=== PATIENT | male | born 1995 ===

== ENCOUNTER 2017-07-13 21:12 | Emergency (ER) | payer OTHER ==
[2017-07-13 21:27] VITALS: BP 135/84
--- NOTE | 2017-07-13 21:45 | UC ---
Laceration HPI - HPI Summary HPI Summary: Patient states he was at a swimming pool lifting some bleachers about 2 hrs ago when they fell on his barefoot left toe. Denies pain. States he had a tetanus vaccine last summer. - History Of Current Complaint Chief Complaint: UCLowerExtremity Stated Complaint: TOE INJURY Time Seen by Provider: 07/13/17 21:27 Hx Obtained From: Patient Laceration Location: Toe Mechanism Of Injury: Blunt Trauma Onset/Duration: Sudden Onset, Lasting Hours Severity: Moderate Pain Intensity: 6 - Allergies/Home Medications Allergies/Adverse Reactions: Allergies Allergy/AdvReac Type Severity Reaction Status Date / Time No Known Allergies Allergy Verified 07/13/17 21:28 Home Medications: Home Medications NK [No Home Medications Reported] 07/13/17 [History Confirmed 07/13/17] PMH/Surg Hx/FS Hx/Imm Hx Previously Healthy: Yes - Surgical History Surgical History: None - Social History Alcohol Use: Weekly Substance Use Type: Marijuana Substance Use Comment - Amount & Last Used: last used 5 pm today Smoking Status (MU): Never Smoked Tobacco Review of Systems Constitutional: Negative Skin: Bruising All Other Systems Reviewed And Are Negative: Yes Physical Exam Triage Information Reviewed: Yes Appearance: Well-Appearing, No Pain Distress Vital Signs: Initial Vital Signs Temp 99.1 F 07/13/17 21:22 Pulse 105 07/13/17 21:22 Resp 16 07/13/17 21:22 BP 135/84 07/13/17 21:22 Pulse Ox 98 07/13/17 21:22 Vital Signs Reviewed: Yes Eyes: Positive: Conjunctiva Clear Respiratory: Positive: Chest non-tender, Normal breath sounds Cardiovascular: Positive: Pulses Normal, Brisk Capillary Refill Musculoskeletal: Positive: Strength Intact, ROM Intact, No Edema Laceration Repair - Laceration Repair 1 Description: Linear : No Repair Necessary Laceration Size After Repair: Length (cm) - 2.5 Modified For Repair: No Cleansing Completed Via Routine Prep: Yes Closure Material: Skin Adhesive, SteriStrips Closure Method: Single Layer Suture Of: Skin Laceration Course/Dx - Course/Dx Course Of Treatment: Wound care, instructions for hygiene, pain medication if necessary. - Differential Dx - Laceration/Wound Provider Diagnoses: Superficial blunt trauma laceration of distal left big toe Discharge - Discharge Plan Condition: Stable Disposition: HOME Patient Education Materials: Laceration (ED) Referrals: No Primary Care Phys,NOPCP [Primary Care Provider] - [facility] [Outside] Images Feet (Multiple View): 1 - linear superficial laceration approx 2.5cm in length, minimal bruising surrounding distal toenail, which is intact
== END 2017-07-13 21:59 | disposition home or self-care (01) ==
LOC: UCEAST 21:12
DX: S91.112A Laceration without foreign body of left great toe without damage to nail, initial encounter (principal); W20.8XXA Other cause of strike by thrown, projected or falling object, initial encounter; Y92.9 Unspecified place or not applicable
CPT/HCPCS: 99202; G0463